=== PATIENT | female | born 1975 | race Caucasian/White ===

== ENCOUNTER 2018-03-18 11:36 | Emergency (ER) | payer SELFPAY ==
[~2018-03-18] VITALS: Ht 157.5 cm; Wt 66.0 kg
[2018-03-18 12:20] LABS: BASOPHILS % 0.8 % (0.0-2.0); EOSINOPHILS % 1.6 % (0.0-5.0); HEMATOCRIT. 35.7 % (36.0-48.0); HEMOGLOBIN. 11.8 g/dL (12.0-16.0); MEAN CORPUSCULAR HEMOGLOBIN 28.1 pg (28.0-32.0); MEAN CORPUSCULAR VOLUME 84.8 fL (81.0-99.0); MEAN PLATELET VOLUME 9.5 fl (7.4-10.4); NEUTROPHILS % 53.6 % (40.0-76.0); PLATELET 267 x1000/uL (130-400); RED BLOOD CELL COUNT 4.21 mill/uL (4.2-5.4); RED CELL DISTRIBUTION WIDTH 15.1 % (11.6-14.6)
[2018-03-18 12:27] LABS: CHLORIDE 110 mEq/L (98-107)
[2018-03-18 20:06] LABS: COLOR URINE YELLOW (YELLOW); KETONES URINE NEGATIVE (NEGATIVE); LEUKOCYTE ESTERASE URINE NEGATIVE (NEGATIVE); NITRITE URINE NEGATIVE (NEGATIVE); OCCULT BLOOD URINE NEGATIVE (NEGATIVE); PROTEIN URINE NEGATIVE (NEGATIVE); SPECIFIC GRAVITY URINE 1.024 (1.005-1.030); UROBILINOGEN URINE 0.2 E.U./dL (0.2-1.0)
[2018-03-18 20:32] LABS: CLARITY URINE CLEAR (CLEAR)
[2018-03-18 21:20] VITALS: BP 125/83
== END 2018-03-18 21:40 | disposition home or self-care (01) ==
LOC: ER 13:01
DX: G56.01 Carpal tunnel syndrome, right upper limb (principal); M75.51 Bursitis of right shoulder; D64.9 Anemia, unspecified
CPT/HCPCS: 36415; 80053; 81003; 81025; 85025; 93005; 99285